=== PATIENT | female | born 1995 | race Caucasian/White ===

== ENCOUNTER 2017-10-31 06:01 | Emergency (ER) | payer OTHER ==
[~2017-10-31] VITALS: Ht 167.6 cm; Wt 58.7 kg
[2017-10-31 06:08] VITALS: TEMP 37.7; Ht 167.6 cm; Wt 58.7 kg
[2017-10-31] MEDS ORDERED: KETOROLAC TROMETHAMINE 30 MG/ML VIAL IV STA (06:12)
[2017-10-31] MEDS ORDERED: ONDANSETRON INJ 2 MG/ML 2 ML VIAL IV STA (06:12)
[2017-10-31] MEDS ORDERED: SODIUM CHLORIDE 0.9% 1000ML 2,000 ML IV STA (06:12)
[2017-10-31] MEDS ORDERED: ACETAMINOPHEN 500 MG TAB PO STA (06:12)
[2017-10-31] MEDS ORDERED: ALBUTEROL HFA 8 GM INHALER INH STA (06:24)
[2017-10-31] MEDS ORDERED: ONDANSETRON HOME PACK 4MG OD TAB PO ONE (06:30)
[2017-10-31] MEDS ORDERED: SERT-234 PO (06:32)
[2017-10-31] MEDS ORDERED: BCPILLS PO (06:32)
[2017-10-31 06:49] LABS: BASO % 0.2 %; BASO ABS # 0.01 K/uL (0-0.2); EOS % 0.2 %; EOS ABS # 0.01 K/uL (0-0.5); HEMATOCRIT 42.8 % (37-47); HEMOGLOBIN 15.2 g/dL (12.0-16.0); IG# 0.01 K/uL (0.00-0.02); LYMPH % 10.6 %; LYMPH ABS # 0.66 K/uL (1.2-3.4); MEAN CELL VOLUME 89.7 fL (80-100); MEAN CORPUSCULAR HEMOGLOBIN 31.9 pg (25-34); MEAN CORPUSCULAR HGB CONC 35.5 g/dl (32-36); MEAN PLATELET VOLUME 10.6 fL (7.4-10.4); MONO % 13.1 %; MONO ABS # 0.82 K/uL (0.11-0.59); NEUT % 75.7 %; NEUT ABS # 4.73 K/uL (1.4-6.5); PLATELET COUNT 200 K/uL (130-400); RED CELL DISTRIBUTION WIDTH CV 12.4 % (11.5-14.5); RED CELL DISTRIBUTION WIDTH SD 40.4 fL (36.4-46.3); WHITE BLOOD COUNT 6.24 K/uL (4.8-10.8)
[2017-10-31 07:05] LABS: INFLUENZA B ANTIGEN POS for Influ B (NEG)
[2017-10-31 07:07] LABS: CALCIUM 9.1 mg/dl (8.5-10.1); CREATININE 0.71 mg/dl (0.60-1.20); POTASSIUM 3.6 mmol/L (3.5-5.1)
--- NOTE | 2017-10-31 07:07 | EMERGENCY ROOM VISIT NOTE ---
History First contact with patient: 06:11 Chief Complaint: FLU LIKE SX Stated Complaint: FEVER,THROWING UP,CHILLS,COUGH,DIARRHEA History of Present Illness The patient is a 22 year old female who presents to the Emergency Room with complaints of fever, chills, cough, congestion, nausea, vomiting, diarrhea and body aches for the past 2 days. Patient took Tylenol earlier tonight. Patient denies neck stiffness, sore throat, earache, chest pain, dyspnea, abdominal pain. No recent travel. Other kids have been sick. Review of Systems See HPI for pertinent positives & negatives. A total of 10 systems reviewed and were otherwise negative. Past Medical/Surgical History Anxiety Social History Smoking Status: Never Smoker Smokeless Tobacco Use: No Alcohol Use: none Drug Use: none Occupation Status: [employer] student Current/Historical Medications Scheduled Control Pills ( Control Pills), 1 TAB PO DAILY Sertraline (Zoloft), 100 MG PO DAILY Physical Exam Vital Signs Date Time Temp Pulse Resp B/P (MAP) Pulse Ox O2 Delivery O2 Flow Rate FiO2 10/31/17 06:51 101 10/31/17 06:08 37.7 96 18 119/84 95 Room Air Physical Exam VITALS: Vitals are noted on the nurse's note and reviewed by myself. Vital signs low-grade fever GENERAL: Pleasant female vomiting, in no acute distress, nondiaphoretic, well- developed well-nourished. SKIN: The skin was without rashes, erythema, edema, or bruising. There is no tenting of the skin. Capillary reflex less than 2 seconds. HEAD: Normocephalic atraumatic. EARS: External auditory canals clear, tympanic membranes pearly silverio without erythema or effusion bilaterally. EYES: Pupils equal round and reactive to light and accommodation. Conjunctivae without injection, sclerae without icterus. Extraocular movements intact. NOSE: Patent, turbinates without inflammation or discharge. No sinus tenderness. MOUTH: Mucous membranes mildly dry. Pharynx without erythema or exudate. Uvula midline. Airway patent. Tongue does not deviate. NECK: Supple without nuchal rigidity. No lymphadenopathy. No thyromegaly. Cervical spine is nontender. No JVD. No meningeal signs HEART: Regular rate and rhythm without murmurs gallops or rubs. LUNGS: Clear to auscultation bilaterally without wheezes, rales or rhonchi. No dullness to percussion. No retractions or accessory muscle use. ABDOMEN: Positive bowel sounds x 4. Normal tympanic percussion. Soft, nontender, without masses or organomegaly. Nayak sign negative. No guarding or rebound tenderness. MUSCULOSKELETAL: No muscle atrophy, erythema, or edema noted. NEURO: Patient was alert and oriented to person place and time. Normal sensation to light and sharp touch. No focal neurological deficits. Medical Decision & Procedures Laboratory Results 10/31/17 06:25 Red Blood Count 4.77, Mean Corpuscular Volume 89.7, Mean Corpuscular Hemoglobin 31.9, Mean Corpuscular Hemoglobin Concent 35.5, Mean Platelet Volume 10.6, Neutrophils (%) (Auto) 75.7, Lymphocytes (%) (Auto) 10.6, Monocytes (%) (Auto) 13.1, Eosinophils (%) (Auto) 0.2, Basophils (%) (Auto) 0.2, Neutrophils # (Auto ) 4.73, Lymphocytes # (Auto) 0.66, Monocytes # (Auto) 0.82, Eosinophils # (Auto ) 0.01, Basophils # (Auto) 0.01 Test 10/31/17 00:00 10/31/17 06:25 Influenza Type A Antigen Neg for Influ A (NEG) Influenza Type B Antigen POS for Influ B (NEG) White Blood Count 6.24 K/uL (4.8-10.8) Red Blood Count 4.77 M/uL (4.2-5.4) Hemoglobin 15.2 g/dL (12.0-16.0) Hematocrit 42.8 % (37-47) Mean Corpuscular Volume 89.7 fL (80-100) Mean Corpuscular Hemoglobin 31.9 pg (25-34) Mean Corpuscular Hemoglobin Concent 35.5 g/dl (32-36) Platelet Count 200 K/uL (130-400) Mean Platelet Volume 10.6 fL (7.4-10.4) Neutrophils (%) (Auto) 75.7 % Lymphocytes (%) (Auto) 10.6 % Monocytes (%) (Auto) 13.1 % Eosinophils (%) (Auto) 0.2 % Basophils (%) (Auto) 0.2 % Neutrophils # (Auto) 4.73 K/uL (1.4-6.5) Lymphocytes # (Auto) 0.66 K/uL (1.2-3.4) Monocytes # (Auto) 0.82 K/uL (0.11-0.59) Eosinophils # (Auto) 0.01 K/uL (0-0.5) Basophils # (Auto) 0.01 K/uL (0-0.2) RDW Standard Deviation 40.4 fL (36.4-46.3) RDW Coefficient of Variation 12.4 % (11.5-14.5) Immature Granulocyte % (Auto) 0.2 % Immature Granulocyte # (Auto) 0.01 K/uL (0.00-0.02) Medications Administered Medications (Trade) Dose Ordered Sig/Isabelle Route Start Time Stop Time Status Last Admin Dose Admin Sodium Chloride 2,000 ml @ 999 mls/hr Q2H1M STAT IV 10/31/17 06:12 10/31/17 08:12 10/31/17 06:41 999 MLS/HR Ondansetron HCl (Zofran Inj) 4 mg NOW STAT IV 10/31/17 06:12 10/31/17 06:14 DC 10/31/17 06:37 4 MG Ketorolac Tromethamine (Toradol Inj) 30 mg NOW STAT IV 10/31/17 06:12 10/31/17 06:14 DC 10/31/17 06:39 30 MG Acetaminophen (Tylenol Tab) 1,000 mg NOW STAT PO 10/31/17 06:12 10/31/17 06:14 DC 10/31/17 06:39 1,000 MG ED Course Prior records/ancillary studies reviewed. Triage Nursing notes reviewed. Additional history obtained from friend. The patient's history was concerning for fever. Differential diagnosis: Etiologies such as viral syndrome, otitis, pharyngitis, pneumonia, influenza, meningitis, urinary tract infection, sepsis, bacteremia, as well as others were entertained. Physical examination: Patient is alert and mildly ill-appearing ER treatment provided: IV fluids, Zofran, Toradol, Tylenol On reassessment the patient felt better. Diagnostics interpreted by me: The labs revealed positive flu. Imaging studies: Chest x-ray with no acute consolidation, pneumothorax or free air per my interpretation This appears to be consistent with vomiting, diarrhea and influenza with dehydration. Patient felt better after being medicated as above. She is tolerating fluids. She was nontoxic appearing. She was neurovascularly and neurologically intact. She is advised to take cold medicines as needed, rest, stay well-hydrated and follow-up health services in a few days or here in the ER sooner for high fevers, lethargy, neck stiffness, worsening signs or symptoms or as needed. Patient was advised she is highly contagious and she she stay at home until 24 hours fever free. By the evaluation outlined above emergent etiologies such as otitis, pharyngitis, pneumonia, meningitis, urinary tract infection, sepsis, bacteremia, as well as others were deemed relatively unlikely. The pt informed about the findings as listed above. All questions were answered and pleased with the treatment. Return instructions were outlined and the patient was discharged in stable condition. Outpatient prescription management: Zofran Referral: The patient was referred back to their primary care physician/[facility] for follow-up in 2 to 3 days for a recheck of the current condition. Case reviewed by attending Medical Decision As above Medication Reconcilliation Current Medication List: was personally reviewed by me Blood Pressure Screening Patient's blood pressure: Normal blood pressure Impression Primary Impression: Influenza B Additional Impressions: Nausea vomiting and diarrhea Dehydration Departure Information Dispostion Home / Self-Care Condition GOOD Referrals No Doctor, Assigned (PCP) Patient Instructions My [facility] Additional Instructions Zofran 4 m tablet every 6 hours as needed for nausea and vomiting Acetaminophen(Tylenol) may be used for fever or pain. Use 1000mg every six hours as needed. Avoid using more than 3000mg in a 24 hour period. (AND/OR) Ibuprofen(Motrin, Advil) may be used for fever or pain. Use 600mg every six hours as needed. Take with food. Avoid using more than 2400mg in a 24 hour period. Do not use 2400mg per day for more than three consecutive days without physician direction. Prolonged inappropriate use can lead to stomach upset or ulcers. Afrin nasal spray: 2-3 sprays to each nostril twice daily as needed for congestion. Do not use for more than 3-4 days because it can lead to worsening rebound congestion. Pseudoephedrine(Sudaphed): 30-60mg every 6 hours as needed for nasal congestion. Do not take this with other stimulant products or supplements. Albuterol Inhaler: Take 2 puffs four times daily for seven days, then as needed. Rest and drink plenty of fluids. Controlling your fever with Tylenol and Ibuprofen as above will make you feel better. Wash your hands after nose blowing, sneezing, or coughing. Most germs are spread through contact, therefore improper hygiene may result in your close contacts and loved ones becoming ill just like you. Continue current medications. Return to the ER for severe headache, neck stiffness, chest pain, difficulty breathing, fevers, vomiting, worsening of your condition, or as needed. Follow up with your primary physician this week for a recheck of your current condition. Problem Qualifiers
[2017-10-31 07:25] VITALS: BP 140/86; PULSE 86; O2SAT 96
--- NOTE | 2017-10-31 07:27 | DIAGNOSTIC IMAGING REPORT ---
CHEST ONE VIEW PORTABLE CLINICAL HISTORY: cough/fever COMPARISON STUDY: No previous studies for comparison. FINDINGS: Lung volumes are normal. No pneumothorax or pleural effusion is noted. There is no consolidation to suggest pneumonia. Cardiomediastinal silhouette is normal. Pulmonary vascularity is normal. IMPRESSION: No acute cardiopulmonary findings. Electronically signed by: Vazquez Crespo M.D. 10/31/2017 7:26 AM Dictated Date/Time: 10/31/2017 7:25 AM
== END 2017-10-31 07:36 | disposition home or self-care (01) ==
LOC: C.EDB 06:02 → C.EDA 07:36
DX: J10.1 Influenza due to other identified influenza virus with other respiratory manifestations (principal); R11.2 Nausea with vomiting, unspecified; E86.0 Dehydration; F41.9 Anxiety disorder, unspecified; Z79.3 Long term (current) use of hormonal contraceptives; Z79.899 Other long term (current) drug therapy